=== PATIENT | female | born 1995 | race Caucasian/White ===

== ENCOUNTER 2020-08-03 00:05 | Emergency (ER) | payer OTHER, MEDICAID ==
[~2020-08-03] VITALS: Ht 165.1 cm; Wt 113.4 kg
--- NOTE | 2020-08-03 00:30 | NUR ---
Patient to ER bed 2 to gown for evaluation. Side rails up.
--- NOTE | 2020-08-03 00:32 | NUR ---
Pt sent back to ED from OB, after R/O any "baby" issues
[2020-08-03 00:33] VITALS: BP_SYST 134
--- NOTE | 2020-08-03 00:40 | NUR ---
Dr. Quiroga bedside for pt eval
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
[2020-08-03 00:52] VITALS: BP_SYST 134
--- NOTE | 2020-08-03 00:52 | NUR ---
Patient given written and verbal discharge instructions and verbalizes understanding. ER MD discussed with patient the results and treatment provided. Patient in stable condition. ID arm band removed. Patient educated on pain management and to follow up with PMD. Pain Scale 0/10 Opportunity for questions provided and answered.
== END 2020-08-03 00:52 | disposition home or self-care (01) ==
LOC: SED 00:05 → EDSTATUS 00:05 → SED 00:52
DX: O26.893 Other specified pregnancy related conditions, third trimester (principal); R03.0 Elevated blood-pressure reading, without diagnosis of hypertension; Z3A.30 30 weeks gestation of pregnancy; V49.3XXA Car occupant (driver) (passenger) injured in unspecified nontraffic accident, initial encounter; Y93.89 Activity, other specified; Y92.413 State road as the place of occurrence of the external cause; Y99.8 Other external cause status
CPT/HCPCS: 99281